=== PATIENT | male | born 1950 | race Caucasian/White ===

== ENCOUNTER → 2017-02-13 | Outpatient (CLI) | payer BC ==
--- NOTE | 2017-02-13 10:28 | RADIOLOGY REPORT (SQ) ---
EXAM DESCRIPTION: KUB COMPLETED DATE/TIME: 02/13/2017 10:14 am REASON FOR STUDY: CALCULUS OF KIDNEY N20.0 CALCULUS OF KIDNEY COMPARISON: Abdominal CT scan dated December 2015 NUMBER OF VIEWS: One view. TECHNIQUE: Supine radiographic image of the abdomen acquired. LIMITATIONS: Renal contours are partially obscured due to overlying intestinal bowel gas. FINDINGS: BOWEL GAS PATTERN: Normal bowel gas pattern. No dilated loops. CALCIFICATIONS: Small calcific density is projected at the level of the left renal contour consistent with a renal calculus which was present on the previous CT scan. Pelvic calcifications are identifi ed in the lower pelvis in the midline consistent with prostatic calcifications which were present on the previous CT scan SOFT TISSUES: No gross mass or suggestion of organomegaly. HARDWARE: None in the abdomen. BONES: No acute fracture. No worrisome bone lesions. OTHER: No other significant finding. IMPRESSION: Left renal calculus. Other findings as noted above TECHNICAL DOCUMENTATION: JOB ID: [id number]- All Rights Reserved
== END ==
LOC: OD 09:50
PROVIDERS: ATTEND Urology
DX: R97.20 Elevated prostate specific antigen [PSA] (principal); N20.0 Calculus of kidney
CPT/HCPCS: 74000

== ENCOUNTER 2017-12-04 02:55 | Observation (INO) | payer MEDICARE, BC ==
[2017-12-04] MEDS ORDERED: HYDROMORPHONE HCL INJ/PF 2 MG/ML AMPULE IV ONE ×2 (03:40→05:00)
[2017-12-04] MEDS ORDERED: ONDANSETRON HCL INJ/PF 4 MG/2 ML SDV IV ONE (03:40)
--- NOTE | 2017-12-04 03:42 | ER Document Report ---
ED General - General Mode of Arrival: Ambulatory Information source: Patient TRAVEL OUTSIDE OF THE [place] IN LAST 30 DAYS: No <PETE RUBI - Last Filed: 12/04/17 03:51> <ANA MARIA ROSAS - Last Filed: 12/04/17 06:00> - General Chief Complaint: Abdominal Pain Stated Complaint: ABDOMINAL PAIN Time Seen by Provider: 12/04/17 03:30 Notes: Patient is a 67 year old male presenting to the emergency department complaining of abdominal pain onset around 22:30 last night. Patient describes his abdominal pain as stabbing that starts at the bottom of his sternum and radiates down into his suprapubic region. Patient denies any nausea, vomiting, diarrhea, dysuria, or any abdominal surgeries. (PETE RUBI) - Related Data Allergies/Adverse Reactions: No Known Allergies Allergy (Verified 12/04/17 02:55) Past Medical History - General Information source: Patient - Social History Smoking Status: Unknown if Ever Smoked Family History: Reviewed & Not Pertinent - Past Medical History Cardiac Medical History: Reports: Hx Hypercholesterolemia Renal/ Medical History: Reports: Hx Kidney Stones - Immunizations Hx Diphtheria, Pertussis, Tetanus Vaccination: Yes <PETE RUBI - Last Filed: 12/04/17 03:51> Review of Systems - Review of Systems Constitutional: No symptoms reported EENT: No symptoms reported Cardiovascular: No symptoms reported Respiratory: No symptoms reported Gastrointestinal: See HPI, Abdominal pain. denies: Diarrhea, Nausea, Vomiting Genitourinary: No symptoms reported Male Genitourinary: No symptoms reported Musculoskeletal: No symptoms reported Skin: No symptoms reported Hematologic/Lymphatic: No symptoms reported Neurological/Psychological: No symptoms reported -: Yes All other systems reviewed and negative <PETE RUBI - Last Filed: 12/04/17 03:51> Physical Exam <PETE RUBI - Last Filed: 12/04/17 03:51> <ANA MARIA ROSAS - Last Filed: 12/04/17 06:00> - Vital signs Vitals: Temp Pulse Resp BP Pulse Ox 97.5 F 61 20 158/73 H 100 12/04/17 03:05 12/04/17 03:05 12/04/17 03:05 12/04/17 03:05 12/04/17 03:05 - Notes Notes: GENERAL: Alert, appears uncomfortable. Mild distress. HEAD: Normocephalic, atraumatic. EYES: Pupils equal, round, and reactive to light. Extraocular movements intact. ENT: Oral mucosa moist, tongue midline. NECK: Full range of motion. Supple. Trachea midline. LUNGS: Clear to auscultation bilaterally, no wheezes, rales, or rhonchi. No respiratory distress. HEART: Regular rate and rhythm. No murmurs, gallops, or rubs. ABDOMEN: Soft, non-tender. Distended. Bowel sounds present in all 4 quadrants. EXTREMITIES: Moves all 4 extremities spontaneously. NEUROLOGICAL: Alert and oriented x3. Normal speech. PSYCH: Normal affect, normal mood. SKIN: Warm, dry, normal turgor. No rashes or lesions noted. (PETE RUBI) Course - Laboratory Result Diagrams: 12/04/17 03:43 12/04/17 03:43 <PETE RUBI - Last Filed: 12/04/17 03:51> - Laboratory Result Diagrams: 12/04/17 03:43 12/04/17 03:43 - Diagnostic Test Radiology reviewed: Image reviewed, Reports reviewed <ANA MARIA ROSAS - Last Filed: 12/04/17 06:00> - Re-evaluation Re-evalutation: 12/04/17 05:00 Patient is a 67-year-old male who presents with abdominal pain and nausea that began around 1030. Initial concern was for aortic catastrophe but this is not the case. Patient appears to have early appendicitis. Dr. Galindo from surgery has been contacted who will admit the patient. He is to be kept n.p.o. and started on Zosyn. Patient is agreeable to this plan and stable at the time of admission. Of note, troponin and EKG within normal limits. (ANA MARIA ROSAS) - Vital Signs Vital signs: Temp Pulse Resp BP Pulse Ox 97.5 F 61 20 158/73 H 100 12/04/17 03:05 12/04/17 03:05 12/04/17 03:05 12/04/17 03:05 12/04/17 03:05 - Laboratory Laboratory results interpreted by me: 12/04/17 12/04/17 03:43 03:43 WBC 17.8 H Seg Neutrophils % 78.9 H Absolute Neutrophils 14.0 H Chloride 109 H Carbon Dioxide 21 L Total Protein 6.0 L Discharge <PETE RUBI - Last Filed: 12/04/17 03:51> - Discharge Admitting Provider: Surgicalist - [facility] Unit Admitted: Surgical Floor <ANA MARIA ROSAS - Last Filed: 12/04/17 06:00> - Discharge Clinical Impression: Appendicitis Qualifiers: Appendicitis type: acute appendicitis Acute appendicitis type: unspecified acute appendicitis type Qualified Code(s): K35.80 - Unspecified acute appendicitis Condition: Stable Disposition: ADMITTED INPATIENT Scribe Attestation: 12/04/17 06:00 I personally performed the services described in the documentation, reviewed and edited the documentation which was dictated to the scribe in my presence, and it accurately records my words and actions. (ANA MARIA ROSAS) Scribe Documentation - Scribe Written by Herbertibe:: Chase Verdin, 12/04/2017 03:42 acting as scribe for :: Kenyetta <PETE RUBI - Last Filed: 12/04/17 03:51>
[2017-12-04 04:01] LABS: ABSOLUTE BASOPHILS # (AUTO) 0.1 10^3/uL (0.0-0.2); ABSOLUTE EOSINOPHILS # (AUTO) 0.4 10^3/uL (0.0-0.6); ABSOLUTE LYMPHOCYTES (AUTO) 2.3 10^3/uL (0.5-4.7); BASOPHILS % (AUTO) 0.4 % (0-2); EOSINOPHILS % (AUTO) 2.1 % (0-6); HEMATOCRIT 41.1 % (37.9-51.0); HEMOGLOBIN 13.7 g/dL (13.5-17.0); LYMPHOCYTES % (AUTO) 13.2 % (13-45); MEAN CORPUSCULAR HEMOGLOBIN 30.5 pg (27.0-33.4); MEAN CORPUSCULAR HGB CONC 33.2 g/dL (32.0-36.0); MEAN CORPUSCULAR VOLUME 92 fl (80-97); MONOCYTES % (AUTO) 5.4 % (3-13); PLATELET COUNT 251 10^3/uL (150-450); RED BLOOD COUNT 4.48 10^6/uL (4.35-5.55); SEGMENTED NEUTROPHILS % (AUTO) 78.9 % (42-78); TOTAL CELLS COUNTED % (AUTO) 100 %; WHITE BLOOD COUNT 17.8 10^3/uL (4.0-10.5)
[2017-12-04 04:07] LABS: ALANINE AMINOTRANSFERASE 42 U/L (21-72); ALBUMIN 3.5 g/dL (3.5-5.0); ALKALINE PHOSPHATASE 89 U/L (38-126); ANION GAP 8 (5-19); ASPARTATE AMINO TRANSFERASE 25 U/L (17-59); BILIRUBIN,DIRECT 0.3 mg/dL (0.0-0.4); BILIRUBIN,TOTAL 0.3 mg/dL (0.2-1.3); BLOOD UREA NITROGEN 16 mg/dL (7-20); CARBON DIOXIDE 21 mmol/L (22-30); CHLORIDE 109 mmol/L (98-107); GLUCOSE 100 mg/dL (75-110); LIPASE 118.7 U/L (23-300); POTASSIUM 3.8 mmol/L (3.6-5.0); SODIUM 137.6 mmol/L (137-145)
[2017-12-04] MEDS ORDERED: NORMAL SALINE 1000 ML 1,000 ML IV ONE ×3 (04:13→10:06)
--- NOTE | 2017-12-04 05:01 | RADIOLOGY REPORT (SQ) ---
EXAM DESCRIPTION: CT ABDOMEN AND PELVIS WITH CONTRAST CLINICAL HISTORY: Chest and abdominal pain. COMPARISON: None Available. TECHNIQUE: CTA of the chest, abdomen, and pelvis obtained following the uncomplicated intravenous administration of 100 mL Isovue-370. 3-D/MIP reformatted images available. Delayed images of the abdomen and pelvis obtained. DLP: 1655.06 mGycm FINDINGS: Bones: No destructive bone lesions identified. Generative spondylosis of the spine. CTA: Ascending aorta: 3.3 cm Aortic arch: 2.7 cm Descending thoracic aorta: 2.5 cm Infrarenal abdominal aorta: 1.7 cm The aorta is widely patent throughout its length without evidence of aneurysm or dissection. Mild calcified and noncalcified atherosclerotic plaque. The origins of the great vessels are widely patent without evidence of dissection. There is approximately 30% stenosis of the origin of the superior mesenteric artery. The origin of the celiac artery is widely patent. There is likely at least 90% stenosis at the origin of the inferior mesenteric artery. Atherosclerotic plaque at the origin of the left renal artery which is not flow limiting. The right renal artery is widely patent at its origin. No accessory renal arteries. In line flow from the abdominal aorta into the common iliac, external iliac, and common femoral arteries. The internal iliac arteries are patent. The proximal superficial femoral and profunda femoral arteries are patent. Chest: Pulmonary arteries: Contrast bolus is adequate.No filling defects identified in the pulmonary arteries to suggest pulmonary embolus. Thyroid:No abnormalities of the visualized thyroid. Heart:No cardiomegaly, significant pericardial effusion, or coronary artery atherosclerosis Lymph Nodes:No enlarged mediastinal lymph nodes identified. Esophagus:No abnormalities of the esophagus identified. Other:No additional findings. Lungs:No alveolar or interstitial airspace opacities identified. Pleura:No pleural effusion or pneumothorax. Trachea/Airways:No abnormalities of the visualized trachea or airways. Abdomen: Liver: The liver has normal size and density. No intrahepatic mass or biliary dilatation. Gallbladder: No calcified gallstones. Spleen, Pancreas, and Adrenal Glands: The spleen, pancreas, and adrenal glands are unremarkable. Kidneys: The kidneys have normal size and contour without evidence of solid mass or hydronephrosis. Bosniak class I right renal cyst. Vasculature: The portal vein is patent. IVC is unremarkable. Stomach: The stomach and duodenum have normal course. Other: No free intraperitoneal air. No free fluid or lymphadenopathy. Pelvis: Bladder: Urinary bladder is unremarkable. Bowel: No dilated loops of large or small bowel. Appendix: The appendix is dilated with minimal periappendiceal fat stranding however air is identified in the tip. Pelvis: Enlarged prostate. IMPRESSION: 1. No evidence of aortic dissection, aneurysm, or occlusion. 2. 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 3. 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 4. Mild dilatation of the appendix with minimal periappendiceal fat stranding. These findings could be seen with early appendicitis. 5. Enlarged prostate. Urgent finding reported to Dr. Kumari at 12/04/2017 3:57 AM CDT This exam was performed according to our departmental dose-optimization program, which includes automated exposure control, adjustment of the mA and/or kV according to patient size and/or use of iterative reconstruction technique.
[2017-12-04] MEDS ORDERED: PIPERACILLIN/TAZOBACTAM 3.375 GM VIAL IV ONE (05:48)
--- NOTE | 2017-12-04 06:12 | PDOC H&P ---
History of Present Illness Admission Date/PCP: AGUEDA STEINBERG MD Patient complains of: Abdominal pains History of Present Illness: JUMANA ESQUIVEL JR is a 67 year old male who c/o severe epigastric pains at 10:30 last night associated with nausea. Denies fever or chills, diarrhea nor constipation. Went to ED and CTA of abd/pelvis showed early acute appendicitis. Pains also at the RLQ when examined in the ED at 5:40 am. Past Medical History Cardiac Medical History: Reports: Hyperlipidema Past Surgical History Past Surgical History: Reports: Other - cataract surgery 2 yrs ago Social History Smoking Status: Current Every Day Smoker Cigarettes Packs Per Day: 1.0 Frequency of Alcohol Use: Social Hx Recreational Drug Use: No Family History Family History: Reviewed & Not Pertinent Parental Family History Reviewed: Yes Children Family History Reviewed: No Sibling(s) Family History Reviewed.: No Medication/Allergy Home Medications: Ciprofloxacin HCl [Cipro 500 mg Tablet] 500 mg PO BID #10 tablet 03/15/16 Hydrocodone/Acetaminophen [[place] 5-325 mg Tablet] 1 tab PO Q6H PRN #10 tablet Tamsulosin HCl [Flomax 0.4 mg Cap.sr] 0.4 mg PO DAILY #7 cap.sr.24h 03/15/16 Allergies/Adverse Reactions: No Known Allergies Allergy (Verified 12/04/17 02:55) Review of Systems Constitutional: PRESENT: as per HPI Eyes: PRESENT: other - wears reading glasses Cardiovascular: PRESENT: other - no chest pains/cough Gastrointestinal: PRESENT: abdominal pain, nausea Genitourinary: PRESENT: other - no dysuria Neurological: PRESENT: other - no seizures Endocrine: PRESENT: other - no polyuria Hematologic/Lymphatic: PRESENT: other - no easy bruising Physical Exam Vital Signs: Temp Pulse Resp BP Pulse Ox 97.5 F 61 20 158/73 H 100 12/04/17 03:05 12/04/17 03:05 12/04/17 03:05 12/04/17 03:05 12/04/17 03:05 Intake & Output 12/02/17 12/03/17 12/04/17 06:59 06:59 06:59 Weight 73.936 kg General appearance: PRESENT: mild distress Head exam: PRESENT: atraumatic Eye exam: PRESENT: conjunctiva pink Mouth exam: PRESENT: moist Neck exam: PRESENT: full ROM Respiratory exam: PRESENT: clear to auscultation facundo Cardiovascular exam: PRESENT: RRR Pulses: PRESENT: normal radial pulses Vascular exam: PRESENT: normal capillary refill GI/Abdominal exam: PRESENT: soft, tenderness - epigastric and RLQ Rectal exam: PRESENT: deferred Extremities exam: PRESENT: full ROM Musculoskeletal exam: PRESENT: ambulatory Neurological exam: PRESENT: alert, oriented to person, oriented to place, oriented to time, oriented to situation Psychiatric exam: PRESENT: appropriate affect Skin exam: PRESENT: normal color, warm Results Laboratory Results: 12/04/17 03:43 12/04/17 03:43 12/04/17 12/04/17 03:43 03:43 WBC 17.8 H RBC 4.48 Hgb 13.7 Hct 41.1 MCV 92 MCH 30.5 MCHC 33.2 RDW 14.0 Plt Count 251 Seg Neutrophils % 78.9 H Lymphocytes % 13.2 Monocytes % 5.4 Eosinophils % 2.1 Basophils % 0.4 Absolute Neutrophils 14.0 H Absolute Lymphocytes 2.3 Absolute Monocytes 1.0 Absolute Eosinophils 0.4 Absolute Basophils 0.1 Sodium 137.6 Potassium 3.8 Chloride 109 H Carbon Dioxide 21 L Anion Gap 8 BUN 16 Creatinine 0.77 Est GFR ( Amer) > 60 Est GFR (Non-Af Amer) > 60 Glucose 100 Calcium 9.0 Total Bilirubin 0.3 AST 25 ALT 42 Alkaline Phosphatase 89 Total Protein 6.0 L Albumin 3.5 Lipase 118.7 12/04/17 03:43 Troponin I < 0.012 Impressions: Abdomen/Pelvis CTA 12/04/17 03:39 IMPRESSION: 1. No evidence of aortic dissection, aneurysm, or occlusion. 2. 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 3. 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 4. Mild dilatation of the appendix with minimal periappendiceal fat stranding. These findings could be seen with early appendicitis. 5. Enlarged prostate. Urgent finding reported to Dr. Kumari at 12/04/2017 3:57 AM CDT This exam was performed according to our departmental dose-optimization program, which includes automated exposure control, adjustment of the mA and/or kV according to patient size and/or use of iterative reconstruction technique. Chest/Abdomen CTA 12/04/17 03:39 IMPRESSION: 1. No evidence of aortic dissection, aneurysm, or occlusion. 2. 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 3. 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 4. Mild dilatation of the appendix with minimal periappendiceal fat stranding. These findings could be seen with early appendicitis. 5. Enlarged prostate. Urgent finding reported to Dr. Kumari at 12/04/2017 3:57 AM CDT This exam was performed according to our departmental dose-optimization program, which includes automated exposure control, adjustment of the mA and/or kV according to patient size and/or use of iterative reconstruction technique. Assessment & Plan - Time Time Spent: 30 to 50 Minutes - Plan Summary Plan Summary: Keep NPO IV antibiotics For Lap appendectomy
[2017-12-04] MEDS ORDERED: BUPIVACAINE HCL 0.25 % INJ/PF (2.5 MG/1 ML) 30 ML VIAL ONE (07:37)
[2017-12-04] MEDS ORDERED: FENTANYL CITRATE INJ/PF 100 MCG/2 ML AMPUL ONE ×2 (08:06→09:45)
[2017-12-04] MEDS ORDERED: DEXAMETHASONE SOD PHOSPHATE INJ 4 MG/1 ML VIAL ONE (08:06)
[2017-12-04] MEDS ORDERED: ONDANSETRON HCL INJ/PF 4 MG/2 ML SDV ONE (08:06)
[2017-12-04] MEDS ORDERED: MIDAZOLAM 2 MG/2 ML INJ ONE (08:06)
[2017-12-04] MEDS ORDERED: MORPHINE SULFATE 10 MG/ML INJ ONE ×2 (08:07→11:02)
[2017-12-04] MEDS ORDERED: PROPOFOL INJ 200 MG/20 ML VIAL IV ONE (08:07)
[2017-12-04] MEDS ORDERED: ACETAMINOPHEN 100 ML IV ONE (08:07)
[2017-12-04 08:11] LABS: APPEARANCE,URINE CLEAR; BILIRUBIN,URINE NEGATIVE (NEGATIVE); COLOR,URINE YELLOW; GLUCOSE, URINE NEGATIVE (NEGATIVE); KETONES,URINE 20 mg/dL (NEGATIVE); LEUKOCYTE ESTERASE,URINE NEGATIVE (NEGATIVE); NITRITE,URINE NEGATIVE (NEGATIVE); PROTEIN,URINE NEGATIVE (NEGATIVE); URINE SPECIFIC GRAVITY > 1.060; UROBILINOGEN,URINE NEGATIVE mg/dL (<2.0)
[2017-12-04] MEDS ORDERED: FENTANYL CITRATE INJ/PF 100 MCG/2 ML AMPUL IV PRN ×3 (09:05)
[2017-12-04] MEDS ORDERED: OXYCODONE-ACETAMINOPHEN 5-325 MG TABLET PO PRN ×3 (09:05→10:08)
[2017-12-04] MEDS ORDERED: MEPERIDINE HCL/PF INJ 25 MG/1 ML DISP.SYRIN IV PRN (09:05)
[2017-12-04] MEDS ORDERED: DIPHENHYDRAMINE HCL 50 MG/ML VIAL IV PRN (09:05)
[2017-12-04] MEDS ORDERED: PROMETHAZINE HCL INJ 25 MG/1 ML VIAL IV PRN ×2 (09:05)
[2017-12-04] MEDS ORDERED: MORPHINE SULFATE 10 MG/ML INJ IV PRN ×2 (09:05→10:08)
--- NOTE | 2017-12-04 09:12 | EKG REPORT ---
SEVERITY:- NORMAL ECG - SINUS RHYTHM : Confirmed by: Mandeep Cadena 04-Dec-2017 09:12:10
--- NOTE | 2017-12-04 09:59 | OPERATIVE REPORT E ---
Operative Report NAME: JUMANA ESQUIVEL : 1950 AGE: 67Y DATE OF SURGERY: 12/04/2017 ROOM: ED15 PREOPERATIVE DIAGNOSIS: Acute appendicitis. POSTOPERATIVE DIAGNOSIS: Acute appendicitis. PROCEDURE: Laparoscopic appendectomy. SURGEON: YEIMY JOSHI M.D. ANESTHESIA: General. INDICATIONS: This is a 67-year-old male complaining of severe epigastric pain around 10:30 last night which was associated with nausea. He went to the ED where a CAT scan of the abdomen was done which showed an early acute appendicitis. Also the pains somewhat localized in the right lower quadrant when examined in the emergency room this morning. DESCRIPTION OF PROCEDURE: After adequate general anesthesia the patient was placed in a supine position and the abdomen prepped and draped in the usual sterile fashion. Appropriate time out was then called. Next, an infraumbilical incision was made and the fascia identified and divided and Tara trocar inserted and CO2 insufflated to a pressure of 15 mmHg. Another trocar was placed in the suprapubic area, 5 mm, and a 12 mm in the left lower quadrant under direct vision. Next the appendix was then identified and noted to be inflamed. It was pulled up with a grasper and the mesoappendix cauterized and divided with the use of harmonic vivi. The base of the appendix appears to be not involved with inflammation and this was then stapled with an EndoGIA. The appendix was then placed in an Endobag and pulled out through the umbilical port. Next trocar was reinserted and irrigation was done around appendiceal area. There was a small amount of oozing of the mesoappendix and this was then controlled with a couple of Hemoclips. The bleeding stopped nicely. Part of the omentum was then pulled over the appendiceal area. Following this all the trocars were removed and CO2 allowed to come out of the trocar sites. The infraumbilical fascia was then reapproximated using [id number] sutures using 0 Vicryl. There appeared to be a small umbilical hernia that was left unfixed. All the skin incisions were then closed with running subcuticular 4-0 Vicryl undyed. Local anesthesia was infiltrated into the fascia and into the skin incisions. Steri-Strips were placed over the incision sites. The patient tolerated the procedure well. Needle, instrument and sponge count were all correct and estimated blood loss about 20 mL. Patient was then brought to the recovery room in satisfactory condition. DICTATING PHYSICIAN: YEIMY JOSHI M.D. [id number] PHY#: [id number] ID: [id number] JOB#: [id number] ACCT: [id number] cc:YEIMY JOSHI M.D. >
[2017-12-04] MEDS ORDERED: ONDANSETRON HCL INJ/PF 4 MG/2 ML SDV IV PRN (10:02)
[2017-12-04] MEDS ORDERED: ROCURONIUM BROMIDE INJ 50 MG/5 ML VIAL IV ONE (11:24)
[2017-12-04] MEDS ORDERED: NEOSTIGMINE METHYLSULFATE 10 MG/10 ML VIAL ONE (11:24)
[2017-12-04] MEDS ORDERED: GLYCOPYRROLATE INJ 0.4 MG/2 ML VIAL ONE (11:24)
[2017-12-04] MEDS ORDERED: SUCCINYLCHOLINE CHLORIDE INJ 200 MG/10 ML VIAL ONE (11:24)
[2017-12-04] MEDS ORDERED: PIPERACILLIN/TAZOBACTAM 3.375 GM VIAL IV SCH (12:00)
[2017-12-04] MEDS: PIPERACILLIN SODIUM/TAZOBACTAM 3.375 GM in NORMAL SALINE 100 ML IV SCH ×2 (12:12→18:01)
[2017-12-04 16:01] VITALS: BP 121/65
--- NOTE | 2017-12-08 23:14 | DISCHARGE SUMMARY E ---
Discharge Summary NAME: JUMANA ESQUIVLE : 1950 AGE: 67Y ADMITTED: 12/04/2017 DISCHARGED: 12/04/2017 FINAL DIAGNOSIS: Acute appendicitis. PROCEDURE DONE: Laparoscopic appendectomy 12/04/17. SURGEON: Kevin Joshi M.D. HOSPITAL COURSE: This is a 67-year-old male who complained of pains in the right lower quadrant and a CT scan of the abdomen showed acute appendicitis. Patient taken to the OR on the same day he was admitted for laparoscopic appendectomy. Patient had an acute appendicitis. Postoperatively, patient did well and discharged improved later that day of admission, tolerating a soft diet well. DISCHARGE MEDICATIONS: He was given a prescription for Flagyl and Cipro to take for the next 5 days, also a prescription for Percocet was given. DISCHARGE INSTRUCTIONS: Patient to be followed up in the surgical clinic in 2 weeks. DISPOSITION: Patient discharged improved on 12/04/17 with the above final diagnosis. DICTATING PHYSICIAN: KEVIN JOSHI M.D. [id number] Y#: [id number] ID: [id number] JOB#: [id number] ACCT: [id number] cc:KEVIN JOSHI M.D. [facility],
== END 2017-12-04 20:32 | disposition home or self-care (01) ==
LOC: ER 02:55 → EH 06:09 → INTOOBSV 06:09 → 2N 10:20
PROVIDERS: ATTEND Surgery
PROC: 0DTJ4ZZ Resection of Appendix, Percutaneous Endoscopic Approach (ICD-10-PCS; principal; 2017-12-04 08:15)
DX: K35.80 Unspecified acute appendicitis (principal); F17.210 Nicotine dependence, cigarettes, uncomplicated; Z87.442 Personal history of urinary calculi
CPT/HCPCS: 93005; 96376; 99285; 96361; 96374; 96375; 36415; 83690; 85025; 80053; 81001; 84484; 88304 ×2; 71275; 74174; 93010; 44970; J2250; J3490; J1100; J3010; J2270; A9270; J1170; J0330; J2405; J7030; J2704; J2543; J0131; 840